=== PATIENT | male | born 1990 | race Caucasian/White ===

== ENCOUNTER 2024-08-23 11:40 | Outpatient (OUT) | payer OTHER, SELFPAY ==
--- NOTE | 2024-08-23 11:52 | XR_ITS ---
[facility] [place] [id number] Patient Name: SISSY BRADY MRN: [id number] date: 1990 Sex: M Assigned Patient Location: [facility] Current Patient Location: [facility] Accession/Order Number: [id number] Exam Date: 08/23/2024 13:32 Report Date: 08/23/2024 13:33 At the request of: NOMI MULLEN MD Procedure: XR chest 2V Plain film chest 2 view HISTORY: Hemoptysis for 3 days. COMPARISON: None FINDINGS: SUPPORT DEVICES: None POSTSURGICAL CHANGES: None HEART: Within normal limits PULMONARY ARIELLA: Within normal limits MEDIASTINUM: Unremarkable LUNGS AND PLEURA: No acute lung process, pleural effusion or pneumothorax identified. BONY STRUCTURES: Intact ADDITIONAL FINDINGS None XR/XR chest 2V IMPRESSION: No acute process. Impression dictated by: Hayden Mata M.D.08/23/2024 1:33 PM Dictation Location: [place] [address] Electronically authenticated by: [id number] Y Date: 08/23/2024 13:33
== END 2024-08-23 11:41 | disposition home or self-care (01) ==
LOC: RAD 11:46
PROVIDERS: PCP Family Medicine; Visit Provider Family Medicine
DX: R04.2 Hemoptysis (principal)
CPT/HCPCS: 71046